=== PATIENT | female | born 1960 | race Caucasian/White ===

== ENCOUNTER → 2016-08-25 | Day surgery (SDC) | payer BC ==
[~2016-08-25] MED LIST: ACETAMINOPHEN/HYDROcodone 325 MG/5 MG TAB ONE; LACTATED RINGER'S 1000 ML INJ 1,000 ML ONE; LIDOCAINE HCL 1% PF 30 ML VIAL ONE; MIDAZOLAM HCL 2 MG/2 ML VIAL ONE; ONDANSETRON HCL 4 MG/2 ML VIAL IV PUSH ONE; PROPOFOL 200 MG/20 ML AMP IV ONE; ceFAZolin INJ 1,000 MG VIAL ONE
--- NOTE | 2016-08-25 07:05 | MH ---
cc: AP PARADA DATE OF ADMISSION: 08/25/2016 SCHEDULED PROCEDURE LEEP or cold knife cone under general anesthesia. ADMITTING DIAGNOSIS Persistent low-grade squamous intraepithelial lesion. SECONDARY DIAGNOSIS Previous cone biopsy with severe cervical scarring and inability to identify transformation zone. HISTORY OF PRESENT CONDITION The patient is a 56-year-old white female, para 1 on continuous OCPs who underwent colposcopy in July. She had been seen prior to then nine months and had been on oral contraceptives for breakthrough bleeding and mood stabilization. She was doing well on that. However, she has a persistent low-grade lesion and colposcopy was virtually impossible due to a previous cone biopsy and significant scarring. PAST SURGICAL HISTORY 1. Her first cone was done in 1984. 2. She underwent an obstetrical section in 1996 for her daughter Emily. 3. She had breast implants in 2015. 4. scar revision at the same time. PAST MEDICAL HISTORY 1. Chronic Young-Melendez. 2. Recurrent genital herpes. 3. Reactive or situational depression. 4. Labile blood pressures. MEDICATIONS She is currently on - 1. Lisinopril 10 mg. 2. Sprintec. SOCIAL HISTORY She does not smoke, drink or use illicit drugs. She currently does not work. She is involved in a monogamous relationship. LMP Her last period was August 17. ALLERGIES She has no allergies. PHYSICAL EXAMINATION VITAL SIGNS: Her weight is 117. Her height is 5'1". Her blood pressure is 140/80. NECK: She has no thyroid enlargement. LUNGS: Her lungs are clear. HEART: Her heart rate and rhythm are regular. ABDOMEN: Benign. She has no hepatosplenomegaly. No CVA tenderness. PELVIC EXAM: Perineum is estrogenized. The vault is elevated. Cervix is nulliparous, scarred and even with careful colposcopy and Lugol's it is very difficult to identify the transformation zone and the cervical os. Cytology and histology is consistent with low-grade lesion but I cannot assess the degree. The uterus is small. Ovaries not palpable. RECTAL: Guaiac has previously been negative. IMPRESSION Persistent low-grade lesion in someone with a suboptimal colposcopy and history of prior LEEP. PLAN The plan is to proceed with LEEP procedure under anesthesia or possible cold knife cone biopsy. The risks, benefits, expectations have been reviewed in detail. She has signed consents and is scheduled for tomorrow at noon. Ap Parada MD PPC/SSB /10:14 PM /6:55 AM
--- NOTE | 2016-08-27 09:21 | MP ---
cc: AP PARADA DATE OF SURGERY 08/25/2016 DATE OF 1960 PREOPERATIVE DIAGNOSIS Persistent low-grade squamous intraepithelial lesion. Cannot rule out high grade with an adequate cold and inability to see the transformation. POSTOPERATIVE DIAGNOSES 1. Persistent low-grade squamous intraepithelial lesion. Cannot rule out high grade with an adequate cold and inability to see the transformation. 2. Desired treatment for laxity of fourchette. PROCEDURE LEEP procedure and endocervical curettage and modified perineoplasty. ANESTHESIA General SURGEON MD Lauro [employer] [facility] staff FINDINGS Examination under anesthesia revealed a nulliparous very scarred cervix that I could not identify the canal in the office on several occasions. It was felt to be a short cervix and a very small uterus. Using suture at 9 and 3 to reduce blood flow and then a third suture at 12 for traction, the cervix was carefully evaluated and the endocervical canal identify. The initial LEEP was taken to completely incorporate the endocervical canal and transformation zone and then a second small portion was taken at 7 o'clock where an area of lesion was noted. Then an endocervical curettage was performed. A classic perineoplasty was then performed where the tissue at the fourchette was excised in a triangular fashion. The muscle was reapproximated and the vaginal mucosa oversewn with chromic. Blood loss was negligible. Sponge, instrument and needle count were correct. Pathology will be pending. She tolerated the procedure well. PROCEDURE The patient was identified as Alba Bertrand. Her permit was reviewed in holding. She was taken to the operating room, placed under general endotracheal anesthesia. She had received 1 gram of Ancef. She was prepped and draped in the dorsal lithotomy position. A time-out was performed. Examination under anesthesia was done. Suture was placed at 9 o'clock and 3 o'clock with Vicryl to reduce bleeding. A third suture was placed at 12 o'clock for traction. Using that for traction, a LEEP was done and in a single pass the entire stenotic endocervical canal was incorporated. The actual cervical length was minimal, probably due to her previous LEEP many years ago. A small portion at 7 o'clock was taken to incorporate all the established lesion and then an endocervical curetting was obtained. Lastly the angles of the fourchette were grabbed and the area was infiltrated with lidocaine, an incision made in triangular fashion to remove the additional skin there and then the ischiocavernosa was reapproximated with deep suture to create bulk and reduce diameter and then the tissue was trimmed and a subcuticular stitch placed with the knot buried. Estimated blood loss was negligible. Sponge, instrument and needle count were correct. She tolerated the procedure well and she went to the recovery room in stable condition. MD XIMENA Aly/SSB /12:52 PM /9:05 AM
== END | disposition home or self-care (01) ==
LOC: ESDC 11:18
PROVIDERS: ATTEND Obstetrics & Gynecology
DX: N87.9 Dysplasia of cervix uteri, unspecified (principal); N72 Inflammatory disease of cervix uteri
CPT/HCPCS: 00940; 57522; 88305; J0690; J2250; J2405; J3010; J7120